=== PATIENT | female | born 2000 | race Caucasian/White ===

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

== ENCOUNTER 2021-04-11 15:12 | Outpatient (CLI) | payer BC, OTHER ==
--- NOTE | 2021-04-11 16:36 | XRAY Report ---
PROCEDURE: Knee 3 View RT INDICATIONS: SPRAIN OF R KNEE TECHNIQUE: 3 views of the right knee(s) were acquired. COMPARISON: None. FINDINGS: Bones: No fractures or dislocations. No suspicious bony lesions. Soft tissues: No joint effusion. No suspicious soft tissue calcifications. IMPRESSION: No acute fracture. No osseous lesion. If symptoms and/or clinical suspicion for patholog y continue, further assessment with repeat plain films, or advanced imaging (e.g., CT, MRI, or bone s can) is recommended for further assessment. Reviewed by: Whit Dumont MD on 04/11/2021 4:35 PM PDT Approved by: Whit Dumont MD on 04/11/2021 4:35 PM PDT Station ID: [id number]
== END 2021-04-11 23:59 | disposition home or self-care (01) ==
LOC: DI.N 15:12
PROVIDERS: ATTEND Nurse Practitioner
DX: S83.91XA Sprain of unspecified site of right knee, initial encounter (principal)

== ENCOUNTER 2021-08-13 18:27 | Emergency (ER) | payer BC, OTHER ==
--- NOTE | 2021-08-13 20:47 | XRAY Report ---
PROCEDURE: Wrist 4 View RT INDICATIONS: Trauma TECHNIQUE: 4 views of the wrist were acquired. COMPARISON: None. FINDINGS: Bones: No fractures or dislocations. No suspicious bony lesions. Scaphoid view: The scaphoid appears intact. Soft tissues: No suspicious soft tissue calcifications. IMPRESSION: 1. No fracture or dislocation. Reviewed by: Victorino Balbuena MD on 08/13/2021 8:46 PM [facility] Approved by: Victorino Balbuena MD on 08/13/2021 8:46 PM PST Station ID: [id number]
--- NOTE | 2021-08-13 22:17 | ED Physician Documentation ---
History of Present Illness - Stated complaint Stated Complaint: FALL, RIGHT WRIST PX - Chief complaint Chief Complaint: Trauma Ext - Additonal information Additional information: 20-year-old female presents the emergency department for evaluation of acute right wrist pain that developed 5 days ago when she slipped on the ice. Over time the pain is gotten progressively worse especially on the radial side. There has been no swelling or dislocation. No history of previous injury. She is using an [id number] wrist splint for support. Patient is right-hand dominant. Review of Systems Constitutional: reports: Reviewed and negative Ears: reports: Reviewed and negative Nose: reports: Reviewed and negative Cardiac: reports: Reviewed and negative Respiratory: reports: Reviewed and negative : reports: Reviewed and negative Musculoskeletal: reports: Extremity pain (right wrist) PD PAST MEDICAL HISTORY - Past Medical History Respiratory: Asthma Psych: Depression - Past Surgical History Past Surgical History: Yes - Present Medications Home Medications: Ambulatory Orders Medication Instructions Recorded Confirmed Albuterol Sulf [Ventolin Hfa 0 mg INH .FREQ PRN 06/30/16 09/21/16 Inhaler] Loratadine [Claritin] 1 tab PO DAILY 02/06/18 02/06/18 Sertraline [Zoloft] 25 mg PO DAILY 02/06/18 02/06/18 Sleeping Medication 1 tab PO DAILY 02/06/18 - Allergies Allergies/Adverse Reactions: Allergies Allergy/AdvReac Type Severity Reaction Status Date / Time No Known Drug Allergies Allergy Verified 08/13/21 18:50 - Social History Does the pt smoke?: No Smoking Status: Never smoker Does the pt drink ETOH?: No Does the pt have substance abuse?: No - Immunizations Immunizations are current?: Yes - POLST Patient has POLST: No PD ED PE EXPANDED - General General: Alert, No acute distress - Extremities Extremities: Right wrist (No swelling or deformity. Full range of motion in all planes of the wrist. 2+ radial pulse. Significant tenderness in the snuffbox.) Results - Vitals Vitals: Vital Signs - 24 hr 08/13/21 18:47 Temperature 36.5 C Heart Rate 85 Respiratory 14 Rate Blood Pressure 141/78 H O2 Saturation 100 Oxygen O2 Source Room air - Rads (name of study) right wrist xray Radiology: Final report received (No acute fracture or dislocation.) PD MEDICAL DECISION MAKING - ED course Complexity details: reviewed results, re-evaluated patient, considered differential, d/w patient ED course: 20-year-old female presents emergency department with 5 days of acute right wrist pain after a fall on ice 5 days ago. X-ray does not show any acute pathology however she does have fairly significant tenderness in the snuffbox. Thus she was placed in a thumb spica splint and advised to have repeat imaging completed in 1 week. If at that time pain is improved and no further findings to suggest occult fracture she may proceed with physical therapy. Advise close follow-up with primary care provider. Emergent return precautions otherwise discussed. Departure - Departure Disposition: Home, Self Care Clinical Impression: Right wrist pain Condition: Stable Record reviewed to determine appropriate education?: Yes Instructions: ED Contusion Upper Extr Ch Comments: Joan the x-ray of your wrist does not show an obvious broken bone however you are tender in an area of the wrist called the snuffbox. It can be very difficult to appreciate subtle scaphoid fracture is here. Therefore we have placed you in a fiberglass splint that I would like you to wear for the next week. Please do not get it wet. If he gets wet return to the ER to have it replaced. Your wrist should be tamika-rayed in 1 week's time. If at that time there is no further findings to suggest a fracture this is most likely a contusion. At that time physical therapy can be started to help with wrist healing. I do recommend you take Tylenol or ibuprofen for any discomfort. If any point you feel that your splint is too tight, you have discolored or cold fingers, develop any fevers then please return immediately to the ER for a second evaluation.
[2021-08-13 22:36] VITALS: BP 133/72
== END 2021-08-13 22:36 | disposition home or self-care (01) ==
LOC: ED 18:27
DX: M25.531 Pain in right wrist (principal); W00.9XXA Unspecified fall due to ice and snow, initial encounter
CPT/HCPCS: 99282; 99283

== ENCOUNTER 2021-08-23 08:42 | Outpatient (CLI) | payer BC ==
--- NOTE | 2021-08-23 15:43 | XRAY Report ---
PROCEDURE: Wrist 4 View RT INDICATIONS: RIGHT WRIST PAIN S/P FALL COMPARE TO IMAGES TAKEN 08/13/2021 TECHNIQUE: 4 views of the wrist were acquired. COMPARISON: X-ray wrist 08/13/2021 FINDINGS: Bones: No fractures or dislocations. No suspicious bony lesions. Scaphoid view: No visualized fracture. Soft tissues: No suspicious soft tissue calcifications. IMPRESSION: No visualized fracture. However, if clinical concern and/for pain persists, further evaluation with C T or MRI is recommended as contusion or occult injury cannot be excluded. Reviewed by: Bonnie Morales MD on 08/23/2021 3:42 PM PST Approved by: Bonnie Morales MD on 08/23/2021 3:42 PM PST Station ID: [id number]
== END 2021-08-23 08:43 | disposition home or self-care (01) ==
LOC: DI.N 08:42
PROVIDERS: ATTEND Physician Assistant
DX: M25.531 Pain in right wrist (principal)

== ENCOUNTER 2022-05-09 21:02 | Emergency (ER) | payer OTHER ==
[2022-05-09 21:26] LABS: BASOPHILS % (AUTO) 0.5 %; EOSINOPHILS # (AUTO) 0.2 10^3/uL (0.0-0.7); EOSINOPHILS % (AUTO) 2.4 %; LYMPHOCYTES # (AUTO) 2.8 10^3/uL (1.5-3.5); LYMPHOCYTES % (AUTO) 35.6 %; MEAN CORPUSCULAR HEMOGLOBIN 30.2 pg (27.0-31.0); MEAN CORPUSCULAR HGB CONC 33.3 g/dL (32.0-36.0); MEAN CORPUSCULAR VOLUME 90.5 fL (81.0-99.0); MEAN PLATELET VOLUME 9.5 fL (7.9-10.8); MONOCYTES # (AUTO) 0.8 10^3/uL (0.0-1.0); MONOCYTES % (AUTO) 10.5 %; NEUTROPHILS % (AUTO) 50.9 %; PLT - PLATELET COUNT 312 10^3/uL (130-450); RED BLOOD COUNT 4.31 10^6/uL (4.20-5.40); RED CELL DISTRIBUTION WIDTH 11.9 % (12.0-15.0); WHITE BLOOD COUNT 7.9 x10^3/uL (4.8-10.8)
[2022-05-09 21:39] LABS: BILIRUBIN,URINE NEGATIVE (NEGATIVE); GLUCOSE, URINE (UA) NEGATIVE (NEGATIVE); KETONES,URINE (UA) NEGATIVE (NEGATIVE); LEUKOCYTE ESTERASE, URINE NEGATIVE (NEGATIVE); NITRITE,URINE NEGATIVE (NEGATIVE); OCCULT BLOOD,URINE NEGATIVE (NEGATIVE); PROTEIN,URINE 30 mg/dL (NEGATIVE); UROBILINOGEN,URINE 0.2 (NORMAL) E.U./dL (NORMAL)
[2022-05-09 21:42] LABS: ALBUMIN 4.1 g/dL (3.2-5.5); ALBUMIN/GLOBULIN RATIO 1.2 (1.0-2.2); BILIRUBIN,TOTAL 0.5 mg/dL (0.2-1.0); CALCIUM 9.4 mg/dL (8.5-10.3); CREATININE 0.8 mg/dL (0.4-1.0); POTASSIUM 3.7 mmol/L (3.5-5.0); TOTAL PROTEIN 7.4 g/dL (6.7-8.2)
[2022-05-09 21:45] LABS: CLARITY,URINE CLEAR (CLEAR)
[2022-05-09 21:48] LABS: BACTERIA,URINE Few /HPF (None Seen); RBC,URINE None Seen /HPF (0-5); SQUAMOUS EPITHELIAL CELL,UR FEW Squamous (<= Few); WBC,URINE 0-3 /HPF (0-5)
[2022-05-09 22:30] LABS: HCG UR QUAL NEGATIVE
--- NOTE | 2022-05-10 00:24 | CT Report ---
PROCEDURE: Abdomen/Pelvis W INDICATIONS: RLQ abd pain CONTRAST: IV CONTRAST: Isovue 370 ml: 100 PO CONTRAST: *NO PO CONTRAST TECHNIQUE: After the administration of intravenous contrast, 5 mm thick sections acquired from the diaphragms to the symphysis. 5 mm thick coronal and sagittal reformats were acquired. For radiation dose reducti on, the following was used: automated exposure control, adjustment of mA and/or kV according to debbi ent size. COMPARISON: None. FINDINGS: Image quality: Excellent. Lung bases:There is a 0.2 cm pulmonary nodule in the right lower lobe on series 4 image 3. Heart: Heart is normal in size. ABDOMEN: Liver: No mass lesion. Gallbladder: Within normal limits without calcified gallstones. Biliary ducts: No biliary ductal dilatation. Pancreas: Unremarkable. Spleen: Normal in size. Adrenal Glands: No adrenal nodules. Kidneys and Ureters: No hydronephrosis. Stomach and Bowel: Stomach, small bowel loops, and colon are normal in caliber and wall thickness. The appendix is normal in appearance. A few colonic diverticula are present without acute diverticuli tis. Peritoneum: No abnormal intraperitoneal fluid. No free air. Ventral Wall: No hernia. Abdominal Nodes: No retroperitoneal or mesenteric adenopathy by size criteria. Vessels: Aorta and inferior vena cava are normal in size. PELVIS: Pelvic Organs: Unremarkable. Bladder: Unremarkable. Pelvic Nodes: No enlarged lymph nodes. Miscellaneous: No inguinal hernias are seen. Bones: Visualized osseous structures demonstrate no suspicious focal lesions. IMPRESSION: 1. No definite acute intra-abdominal abnormality. Specifically, no evidence of appendicitis. Reviewed by: Victorino Balbuena MD on 05/10/2022 12:22 AM PDT Approved by: Victorino Balbuena MD on 05/10/2022 12:22 AM PDT Station ID: [id number]
--- NOTE | 2022-05-10 00:28 | ED Physician Documentation ---
PD HPI ABD PAIN - Stated complaint Stated Complaint: Abdominal pain - Chief complaint Chief Complaint: Abd Pain - History obtained from History obtained from: Patient - Additional information Additional information: The patient comes to the emergency department chief complaint of right lower quadrant abdominal pain. She states that her pain started a few days ago, then seemed to get better the next day and then worsened again today. She states she has not had a bowel movement in over 24 hours. The patient denies any nausea or vomiting. No fevers or chills. No dysuria or frequency. No back pain. No respiratory symptoms. No vaginal symptoms. She is not known to be . No other complaints at this time. Review of Systems Ten Systems: 10 systems reviewed and negative Constitutional: reports: Reviewed and negative Eyes: reports: Reviewed and negative Ears: reports: Reviewed and negative Nose: reports: Reviewed and negative Throat: reports: Reviewed and negative Cardiac: reports: Reviewed and negative Respiratory: reports: Reviewed and negative GI: reports: Abdominal Pain : reports: Reviewed and negative Skin: reports: Reviewed and negative Musculoskeletal: reports: Reviewed and negative Neurologic: reports: Reviewed and negative Psychiatric: reports: Reviewed and negative Endocrine: reports: Reviewed and negative Immunocompromised: reports: Reviewed and negative PD PAST MEDICAL HISTORY - Past Medical History Cardiovascular: None Respiratory: Asthma Neuro: Migraines Endocrine/Autoimmune: None GI: None [employer]OTIONAL SUPPORT TEACHER: None : None HEENT: None Psych: Depression, Anxiety Musculoskeletal: None Derm: None - Past Surgical History Past Surgical History: Yes - Present Medications Home Medications: Ambulatory Orders Medication Instructions Recorded Confirmed Albuterol Sulf [Ventolin Hfa 1 - 2 puffs IH Q4HR PRN 06/30/16 03/26/22 Inhaler] Pirmella 1 tab ORAL DAILY 03/26/22 03/26/22 SUMAtriptan [Imitrex] 25 mg PO DAILY 03/26/22 03/26/22 - Allergies Allergies/Adverse Reactions: Allergies Allergy/AdvReac Type Severity Reaction Status Date / Time No Known Drug Allergies Allergy Verified 05/09/22 21:12 - Social History Does the pt smoke?: No Smoking Status: Never smoker Does the pt drink ETOH?: No Does the pt have substance abuse?: No - Immunizations Immunizations are current?: Yes - POLST Patient has POLST: No PD ED PE NORMAL - Vitals Vital signs reviewed: Yes - General General: Alert and oriented X 3, No acute distress, Well developed/nourished - HEENT HEENT: Atraumatic, PERRL, EOMI, Moist mucous membranes - Neck Neck: Supple, no meningeal sign - Cardiac Cardiac: RRR, No murmur, Strong equal pulses - Respiratory Respiratory: No respiratory distress, Clear bilaterally - Abdomen Abdomen: Soft, Non distended, Other (Moderate tenderness, right lower quadrant; Does not extend to pelvis) - Derm Derm: Normal color, Warm and dry, No rash - Extremities Extremities: No deformity, No edema - Neuro Neuro: Alert and oriented X 3, mental health professional 2-12 intact, Normal speech - Psych Psych: Normal mood, Normal affect Results - Vitals Vitals: Vital Signs - 24 hr 05/09/22 05/09/22 05/10/22 21:08 23:12 00:34 Temperature 36.2 C L 36.6 C Heart Rate 90 88 76 Respiratory 14 16 16 Rate Blood Pressure 129/80 122/81 H 123/66 O2 Saturation 100 99 99 Oxygen O2 Source Room air - Labs Labs: Laboratory Tests 05/09/22 05/09/22 05/09/22 21:20 21:20 21:23 WBC 7.9 RBC 4.31 Hgb 13.0 Hct 39.0 MCV 90.5 MCH 30.2 MCHC 33.3 RDW 11.9 L Plt Count 312 MPV 9.5 Neut # (Auto) 4.0 Lymph # (Auto) 2.8 [place] # (Auto) 0.8 Eos # (Auto) 0.2 Baso # (Auto) 0.0 Absolute Nucleated RBC 0.00 Nucleated RBC % 0.0 Sodium Potassium Chloride Carbon Dioxide Anion Gap BUN Creatinine Estimated GFR (MDRD) Glucose Calcium Total Bilirubin AST ALT Alkaline Phosphatase Total Protein Albumin Globulin Albumin/Globulin Ratio Lipase Urine Color YELLOW Urine Clarity CLEAR Urine pH 6.0 Ur Specific [place] 1.025 Urine Protein 30 H Urine Glucose (UA) NEGATIVE Urine Ketones NEGATIVE Urine Occult Blood NEGATIVE Urine Nitrite NEGATIVE Urine Bilirubin NEGATIVE Urine Urobilinogen 0.2 (NORMAL) Ur Leukocyte Esterase NEGATIVE Urine RBC None Seen Urine WBC 0-3 Ur Squamous Epith Cells FEW Squamous Urine Bacteria Few Ur Microscopic Review INDICATED Urine Culture Comments NOT INDICATED Urine HCG, Qual NEGATIVE 05/09/22 21:23 WBC RBC Hgb Hct MCV MCH MCHC RDW Plt Count MPV Neut # (Auto) Lymph # (Auto) [place] # (Auto) Eos # (Auto) Baso # (Auto) Absolute Nucleated RBC Nucleated RBC % Sodium 138 Potassium 3.7 Chloride 106 Carbon Dioxide 24 Anion Gap 8.0 BUN 16 Creatinine 0.8 Estimated GFR (MDRD) 91 Glucose 90 Calcium 9.4 Total Bilirubin 0.5 AST 16 ALT 15 Alkaline Phosphatase 41 L Total Protein 7.4 Albumin 4.1 Globulin 3.3 Albumin/Globulin Ratio 1.2 Lipase 31 Urine Color Urine Clarity Urine pH Ur Specific [place] Urine Protein Urine Glucose (UA) Urine Ketones Urine Occult Blood Urine Nitrite Urine Bilirubin Urine Urobilinogen Ur Leukocyte Esterase Urine RBC Urine WBC Ur Squamous Epith Cells Urine Bacteria Ur Microscopic Review Urine Culture Comments Urine HCG, Qual - Rads (name of study) CT abdomen and pelvis Radiology: Final report received, EMP read indepedently, See rad report (No acute findings) PD MEDICAL DECISION MAKING - ED course Complexity details: reviewed results, re-evaluated patient, considered differential, d/w patient ED course: The patient was worked up with labs, urinalysis, and then CT scan of the abdomen and pelvis, all of which were unremarkable. The patient had been mildly constipated and I did discuss at this could be at least a partial explanation. However, the cause of the patient's pain is unknown with certainty. I discussed with the patient the usual indications for follow-up and return. Departure - Departure Disposition: 01 Home, Self Care Clinical Impression: Abdominal pain Qualifiers: Abdominal location: right lower quadrant Qualified Code(s): R10.31 - Right lower quadrant pain Constipation Qualifiers: Constipation type: unspecified constipation type Qualified Code(s): K59.00 - Constipation, unspecified Condition: Stable Instructions: ED Abdominal Pain Female Non-Specific Abdominal Pain Comments: Your labs and CT scan look good. You do have a fair amount of stool in your bowels as well as some gas and given that you have not had an bowel movement today, this may be part of the reason for the pain. It may also be that you have picked up one of the many viruses that are going around right now and causing stomach and intestine symptoms, And this could account for some of the discomfort. Most likely, this is going to blow over on its own. However, if your pain becomes significantly worse in the next 24 hours, please return to the emergency department. Discharge Date/Time: 05/10/22 00:34
[2022-05-10 00:35] VITALS: BP 123/66
== END 2022-05-10 00:34 | disposition home or self-care (01) ==
LOC: ED 21:02
DX: R10.31 Right lower quadrant pain (principal)
CPT/HCPCS: 36415; 74177; 80053; 81001; 81025; 83690; 85025; 99282; 99284; Q9967; 81003; 87086